=== PATIENT | male | born 1960 | race American Indian/Alaskan Native ===

== ENCOUNTER → 2017-08-09 | Day surgery (SDC) | payer MEDICAID, OTHER ==
[~2017-08-09] MED LIST: Bupivacaine 0.5% 10 ML SDV INJECT ONE; Carboprost Tromethamine 250 MCG/1 ML Amp ONE; HYDROmorphone 1 MG/ML Syringe IVPUSH ONE; HYDROmorphone 1 MG/ML Syringe ONE; HYDROmorphone 2 MG/ML Syringe IVPUSH ONE; LORazepam 2 MG/ML SDV IVPUSH ONE; Lactated Ringers 1,000 ML IV SCH; Lidocaine 1% 20 ML MDV INJECT ONE; Methylergonovine 0.2 MG/1 ML Amp ONE; Midazolam 1 MG/ML 2 ML SDV ONE; Morphine 4 MG/ML Syringe IVPUSH ONE; Morphine 4 MG/ML Syringe IVPUSH PRN; Ondansetron 4 MG/2 ML SDV ONE; Oxytocin 10 Units/1 ML SDV ONE; Propofol 200 MG/20 ML SDV ONE; Rocuronium 10 MG/ML 10 ML Syringe ONE; Sodium Chloride 0.9% 10 ML Syringe FLUSH PRN; Sodium Chloride 0.9% 2.5 ML Syringe FLUSH PRN; Succinylcholine/Normal Saline 200 MG/10 ML Syringe ONE; fentaNYL 100 MCG/2 ML SDV ONE; fentaNYL 250 MCG/5 ML SDV ONE
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
--- NOTE | 2017-08-09 16:17 | CR ---
EXAMINATION: Abdomen HISTORY: Foreign body COMPARISON: None TECHNIQUE: AP views of the abdomen FINDINGS: There is a nonobstructive bowel gas pattern. No calcifications project over the kidneys. Po sterior fusion hardware noted within the lower lumbar spine no foreign body projects over the abdomen . Pelvic phleboliths noted. Visualized osseous structures otherwise appear normal. IMPRESSION: 1. No radiopaque foreign body identified.
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
--- NOTE | 2017-08-09 19:00 | PCM.OPNOTE ---
- General Post-Op/Procedure Note Date of Surgery/Procedure: 08/09/17 Operative Procedure(s): Anoscopy with attempted removal of rectal foreign body. Pre Op Diagnosis: Rectal foreign body Post-Op Diagnosis: Rectal foreign body. Unable to remove the entire foreign body due to lack of instrumentation. Anesthesia Technique: General ET Tube (ASA IIE) Primary Surgeon: Haris Askew Fluid Replacement, Intraop: 1,000 EBL in mLs: 10 Condition: Fair Free Text/Narrative:: Dictation [id number]
--- NOTE | 2017-08-09 20:01 | PCM.POSTAN ---
POST ANESTHESIA ASSESSMENT - MENTAL STATUS Mental Status: Alert, Oriented - VITAL SIGNS Pulse Rate: 73 SaO2: 96 Resp Rate: 14 Blood Pressure: 110/79 Temperature: 36.4 C - RESPIRATORY Respiratory Status: Respiratory Rate WNL, Airway Patent, O2 Saturation Stable - CARDIOVASCULAR CV Status: Pulse Rate WNL, Blood Pressure Stable - GASTROINTESTINAL GI Status: No Symptoms - PAIN Pain Score: 0 - POST OP HYDRATION Hydration Status: Adequate & Stable
--- NOTE | 2017-08-09 20:04 | PCM48HPAN ---
Post Anesthesia Note - EVALUATION WITHIN 48HRS OF ANESTHETIC Vital Signs in Normal Range: Yes Patient Participated in Evaluation: Yes Respiratory Function Stable: Yes Airway Patent: Yes Cardiovascular Function Stable: Yes Hydration Status Stable: Yes Pain Control Satisfactory: Yes Nausea and Vomiting Control Satisfactory: Yes Mental Status Recovered: Yes - COMMENTS/OBSERVATIONS Free Text/Narrative:: Patient transferred via ambulance to [place] for further care from PACU
--- NOTE | 2017-08-10 06:33 | OR ---
SURGEON: Haris Askew M.D. DATE OF PROCEDURE: 08/09/2017 OPERATION PERFORMED: Anoscopy with attempted removal of large rectal foreign body. ANESTHESIA: General endotracheal. ASA CLASSIFICATION: IIE. PREOPERATIVE DIAGNOSIS: Rectal foreign body x24 hours. POSTOPERATIVE DIAGNOSIS: Rectal foreign body x24 hours. ESTIMATED BLOOD LOSS: 5 to 10 mL. INTRAOPERATIVE FLUID REPLACEMENT: 1000 mL of crystalloid. DESCRIPTION OF PROCEDURE: The patient was taken to the operating room and placed on the operating table in the supine position. Time-out was called for appropriate identification of patient and procedure. Sequential compression boots were placed. Following satisfactory attainment of general endotracheal anesthesia, the patient was placed in lithotomy position in the [facility]. Anal dilatation was carried out and the foreign body could initially be felt. We were able to remove 3 to 4 pieces of this, but we could not get above it to remove it. We do not have the rectal instrumentation to go any higher and my concern was that we would perforate his bowel or that he might well require laparotomy and diverting colostomy. There was no obvious perforation at this time, but it was elected to terminate the procedure and transfer the patient to a higher level of care. He did tolerate the procedure well here and was taken to recovery room following emergence from anesthesia and extubation in satisfactory condition. ANASTASIYA / ZOYA /[id number]
--- NOTE | 2017-08-14 15:10 | PCM.SN ---
- Free Text/Narrative Note: Medications charged to patient on 08/10 are not medications given to the Patient. The patient was transferred to a higher level of care 08/09.
== END ==
LOC: MW.ED 14:54 → MW.SDS 17:20
PROVIDERS: ATTEND Surgery
DX: T18.5XXA Foreign body in anus and rectum, initial encounter (principal); F17.210 Nicotine dependence, cigarettes, uncomplicated; W45.8XXA Other foreign body or object entering through skin, initial encounter; Z90.89 Acquired absence of other organs
CPT/HCPCS: 45915; 74018; 96374; 96375; 96376; 99284; J1170; J2060; J2250; J2270; J2405; J3010; J7120; 00902; 88300; 99282; J2704

== ENCOUNTER 2019-10-09 09:20 | Emergency (ER) | payer OTHER ==
[2019-10-09] MEDS ORDERED: Cephalexin 500 MG Cap PO ONE (09:52)
[2019-10-09] MEDS ORDERED: Sulfamethoxazole/Trimethoprim 800-160 MG Tab PO STA (09:52)
[2019-10-09] MEDS: HYDROmorphone 1 MG/ML Syringe IVPUSH PRN ×3 (10:06→13:16)
[2019-10-09 10:20] LABS: BLOOD UREA NITROGEN,BUN 13 mg/dL (7.0-18.0); CARBON DIOXIDE,CO2 26.8 mmol/L (21.0-32.0); CHLORIDE,CL 98 mmol/L (98-107); GLUCOSE RANDOM 105 mg/dL (74-106); POTASSIUM,K 3.5 mmol/L (3.5-5.1); SODIUM,NA 135 mmol/L (136-148)
--- NOTE | 2019-10-09 12:02 | US ---
Bilateral lower extremity deep venous ultrasound: Duplex and color Doppler evaluation was obtained of the right and left common femoral, saphenous, superficial femoral, popliteal, posterior tibial and peroneal veins. Technologist's note: Very technically challenging exam of left leg, numerous open sores in both legs Findings: No definite thrombus is seen within either right or left lower extremities. Impression: 1. No definite venous thrombosis is seen within the right or left lower extremities. Diagnostic code #1 Study was dictated in MDT
[2019-10-09] MEDS ORDERED: Iopamidol 755 Mg/ML 100 ML Bottle IVPUSH ONE (12:41)
--- NOTE | 2019-10-09 13:28 | CT ---
EXAM DATE: 10/09/19 PATIENT'S AGE: 59 CT pelvis Technique: Multiple axial sections were obtained from above the kidneys inferiorly through the pubic symphysis. Intravenous contrast was utilized. No oral contrast has been given. Reconstructed coronal and sagittal images were obtained. Findings: Left common iliac vein is slightly flattened from the right common iliac artery. There is slight prominence in size of the left internal and external iliac veins. Left common femoral and superficial femoral veins appear symmetric in size between right and left sides. Left greater saphenous vein is slightly larger on the left side than on the right side. Subcutaneous edema is seen within the left lower extremity. Slightly prominent lymph nodes within the left inguinal region are seen most likely on an inflammatory basis. Inferior vena cava appears within normal limits. Normal enhancement seen of the visualized veins without evidence of venous thrombosis. Other visualized intra-abdominal structures appear within normal limits. Impression: 1. Slight flattening of the left common iliac vein by the right common iliac artery. Slightly prominent size of the left internal and external iliac veins as well as left greater saphenous vein. Findings felt to represent a mild May Thurner syndrome. No findings of venous thrombosis is seen at this time. 2. Subcutaneous edema within the visualized left lower extremity. Prominent lymph nodes with the left inguinal region most likely on an inflammatory basis. 3. No additional abnormality is appreciated. Diagnostic code #3 This report was dictated in MDT Report Signed by Proxy. NASIR
[2019-10-09] MEDS ORDERED: Aspirin 325 MG Tab PO ONE (14:17)
--- NOTE | 2019-10-09 14:18 | EDM.PDOC ---
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 date because of possible harm to the unborn baby. Discuss the risks and benefits with your doctor. This drug passes into breast milk. While there have been no reports of harm to healthy infants, this drug may have undesirable effects on infants who are ill or premature or have certain disorders (jaundice , high blood levels of bilirubin, G6PD deficiency). Therefore, breast-feeding is not recommended in infants with these conditions. Consult your doctor before breast-feeding any . BACTRIM - DRUG INTERACTIONS: Drug interactions may change how your medications work or increase your risk for serious side effects. This document does not contain all possible drug interactions. Keep a list of all the products you use (including prescription/nonprescription drugs and herbal products) and share it with your doctor and pharmacist. Do not start, stop, or change the dosage of any medicines without your doctor's approval. Some products that may interact with this drug include: certain anti-diabetic medications (sulfonylureas such as glipizide, glyburide, tolbutamide), cyclosporine, digoxin, dofetilide, hydantoins (e.g., phenytoin), live bacterial vaccines, methenamine, methotrexate , PABA taken by mouth, procainamide, pyrimethamine, warfarin. This medication may decrease the effectiveness of combination-type control pills. This can result in . Ask your doctor or pharmacist for details. Discuss whether you should use additional reliable control methods while using this medication. This product can affect the results of certain lab tests. Make sure laboratory personnel and all your doctors know you use this drug. Sepsis Event Note - Evaluation Sepsis Screening Result: No Definite Risk - Focused Exam Vital Signs: Vital Signs Temp Pulse Resp BP Pulse Ox 10/09/19 09:47 36.7 C 92 14 139/87 97 Date Exam was Performed: 10/09/19 Time Exam was Performed: 14:16 - My Orders Last 24 Hours: My Active Orders 10/09/19 09:40 Blood Culture x2 Reflex Set [OM.PC] Stat 10/09/19 09:42 DRUG SCREEN, URINE [URCHEM] Stat 10/09/19 09:45 CULTURE BLOOD [BC] Stat 10/09/19 09:58 CULTURE BLOOD [BC] Stat - Assessment/Plan Last 24 Hours: My Active Orders 10/09/19 09:40 Blood Culture x2 Reflex Set [OM.PC] Stat 10/09/19 09:42 DRUG SCREEN, URINE [URCHEM] Stat 10/09/19 09:45 CULTURE BLOOD [BC] Stat 10/09/19 09:58 CULTURE BLOOD [BC] Stat
== END 2019-10-09 14:47 | disposition home or self-care (01) ==
LOC: MW.ED 09:20
DX: L03.116 Cellulitis of left lower limb (principal); I87.8 Other specified disorders of veins; F17.210 Nicotine dependence, cigarettes, uncomplicated; M19.90 Unspecified osteoarthritis, unspecified site; Z79.82 Long term (current) use of aspirin
CPT/HCPCS: 36415; 72193; 80048; 83605; 85025; 87040; 93970; 96374; 96376; 99284; A9270; J1170; Q9967

== ENCOUNTER 2022-04-07 12:35 | Emergency (ER) | payer OTHER ==
[2022-04-07] MEDS ORDERED: Iopamidol 755 Mg/ML 100 ML Bottle IV ONE (12:46)
[2022-04-07] MEDS ORDERED: Ondansetron 4 MG/2 ML SDV IVPUSH ONE (13:00)
[2022-04-07] MEDS ORDERED: Morphine 4 MG/ML Syringe IV ONE ×2 (13:02→13:49)
[2022-04-07] MEDS ORDERED: Lidocaine 2% Viscous Solution 15 ML UD PO ONE (13:45)
[2022-04-07] MEDS ORDERED: Metoclopramide Oral Soln 10 MG/10 ML UD Cup PO ONE (13:45)
[2022-04-07] MEDS ORDERED: Sodium Chloride 0.9% 1,000 ML IV ONE (13:45)
[2022-04-07] MEDS ORDERED: Famotidine 20 MG/2 ML SDV IV ONE (13:46)
== END 2022-04-07 18:25 ==
LOC: MW.ED 12:35
DX: R10.84 Generalized abdominal pain (principal)
CPT/HCPCS: 74177; 96361; 96374; 96375; 96376; 99284; A9270; J2270; J2405; J3490; J7030; Q9967

== ENCOUNTER 2022-05-11 14:48 | Inpatient (IN) | payer OTHER ==
[2022-05-11] MEDS ORDERED: Ketorolac 30 MG/ML SDV IM ONE (15:14)
[2022-05-11] MEDS ORDERED: Acetaminophen/HYDROcodone 325-5 MG Tab PO ONE (15:31)
[2022-05-11] MEDS ORDERED: Sodium Chloride 0.9% 2.5 ML Syringe FLUSH PRN (16:48)
[2022-05-11] MEDS ORDERED: Sodium Chloride 0.9% 10 ML Syringe FLUSH PRN (16:48)
[2022-05-11] MEDS ORDERED: Enoxaparin 100 MG/1 ML Syringe SUBCUT STA (16:51)
[2022-05-11] MEDS ORDERED: Morphine 4 MG/ML Syringe IVPUSH ONE (17:29)
[2022-05-11 17:33] LABS: CARBON DIOXIDE,CO2 23.8 mmol/L (21.0-32.0); POTASSIUM,K 4.3 mmol/L (3.5-5.1)
[2022-05-11] MEDS ORDERED: Morphine 2 MG/ML SYRINGE IVPUSH PRN (20:29)
[2022-05-11] MEDS ORDERED: Acetaminophen 325 MG Tab PO PRN (20:30)
[2022-05-11] MEDS: oxyCODONE 5 MG Tab PO PRN (20:50)
[2022-05-12] MEDS: oxyCODONE 5 MG Tab PO PRN ×3 (03:01→14:17)
[2022-05-12] MEDS: Enoxaparin 100 MG/1 ML Syringe SUBCUT SCH ×2 (05:02→17:02)
[2022-05-12] MEDS ORDERED: Enoxaparin 100 MG/1 ML Syringe SUBCUT SCH (06:00)
[2022-05-12 06:23] LABS: CARBON DIOXIDE,CO2 22.9 mmol/L (21.0-32.0)
[2022-05-12] MEDS: Pantoprazole 40 MG Tab.CR PO SCH (09:28)
[2022-05-12] MEDS ORDERED: Warfarin 5 MG Tab PO ONE (14:00)
[2022-05-12] MEDS: Warfarin Sliding Scale PO SCH (14:14)
[2022-05-13] MEDS: oxyCODONE 5 MG Tab PO PRN ×3 (00:53→23:42)
[2022-05-13] MEDS: Enoxaparin 100 MG/1 ML Syringe SUBCUT SCH ×2 (04:50→17:37)
[2022-05-13 07:18] LABS: POTASSIUM,K 4.3 mmol/L (3.5-5.1)
[2022-05-13] MEDS: Morphine 4 MG/ML Syringe IVPUSH PRN ×4 (08:58→21:06)
[2022-05-13] MEDS: Pantoprazole 40 MG Tab.CR PO SCH (09:00)
[2022-05-13] MEDS ORDERED: Warfarin 5 MG Tab PO ONE (14:00)
[2022-05-13] MEDS: Warfarin Sliding Scale PO SCH (14:29)
[2022-05-14] MEDS: Morphine 4 MG/ML Syringe IVPUSH PRN ×2 (04:00→08:30)
[2022-05-14] MEDS: Enoxaparin 100 MG/1 ML Syringe SUBCUT SCH (04:07)
[2022-05-14 07:34] LABS: POTASSIUM,K 4.3 mmol/L (3.5-5.1)
[2022-05-14] MEDS: Pantoprazole 40 MG Tab.CR PO SCH (08:33)
[2022-05-14] MEDS ORDERED: HYDROmorphone 1 MG/ML Syringe IVPUSH PRN (08:45)
[2022-05-14] MEDS: HYDROmorphone 1 MG/ML Syringe IVPUSH PRN ×4 (09:47→21:52)
[2022-05-14] MEDS ORDERED: Warfarin 5 MG Tab PO ONE (14:00)
[2022-05-14] MEDS: Warfarin Sliding Scale PO SCH (14:48)
[2022-05-14] MEDS ORDERED: Heparin Sodium 5,000 Units/ML Vial IV ONE (15:30)
[2022-05-14] MEDS: Heparin Sodium/0.45% NaCl 500 ML IV SCH (16:34)
[2022-05-14] MEDS: oxyCODONE 5 MG Tab PO PRN (20:35)
[2022-05-15] MEDS: HYDROmorphone 1 MG/ML Syringe IVPUSH PRN ×8 (01:01→23:53)
[2022-05-15 04:36] LABS: CARBON DIOXIDE,CO2 27.5 mmol/L (21.0-32.0); POTASSIUM,K 4.7 mmol/L (3.5-5.1)
[2022-05-15] MEDS: Pantoprazole 40 MG Tab.CR PO SCH (08:16)
[2022-05-15] MEDS: Heparin Sodium/0.45% NaCl 500 ML IV SCH (10:06)
[2022-05-15] MEDS: oxyCODONE 5 MG Tab PO PRN (12:42)
[2022-05-15] MEDS ORDERED: Warfarin 5 MG Tab PO ONE (14:00)
[2022-05-15] MEDS: Warfarin Sliding Scale PO SCH (14:19)
[2022-05-16] MEDS: HYDROmorphone 1 MG/ML Syringe IVPUSH PRN ×4 (03:45→13:26)
[2022-05-16] MEDS: Heparin Sodium/0.45% NaCl 500 ML IV SCH (04:19)
[2022-05-16 04:44] LABS: CARBON DIOXIDE,CO2 28.9 mmol/L (21.0-32.0); POTASSIUM,K 4.4 mmol/L (3.5-5.1)
[2022-05-16] MEDS: Pantoprazole 40 MG Tab.CR PO SCH (09:16)
[2022-05-16] MEDS: oxyCODONE 5 MG Tab PO PRN (12:54)
[2022-05-16] MEDS ORDERED: Warfarin 5 MG Tab PO ONE (14:00)
[2022-05-16] MEDS: Warfarin Sliding Scale PO SCH (15:33)
== END 2022-05-16 15:00 | DRG 301 ==
LOC: MW.ED 14:48 → MW.MS 17:38
PROVIDERS: ADMIT Internal Medicine; ATTEND Student in an Organized Health Care Education/Training Program
DX: I82.411 Acute embolism and thrombosis of right femoral vein (principal); Z86.718 Personal history of other venous thrombosis and embolism; F17.210 Nicotine dependence, cigarettes, uncomplicated; I82.431 Acute embolism and thrombosis of right popliteal vein; K21.9 Gastro-esophageal reflux disease without esophagitis; M19.90 Unspecified osteoarthritis, unspecified site; G89.29 Other chronic pain; M54.9 Dorsalgia, unspecified; Z20.822 Contact with and (suspected) exposure to COVID-19; F32.A Depression, unspecified; Z86.19 Personal history of other infectious and parasitic diseases; Z90.89 Acquired absence of other organs; Z98.1 Arthrodesis status
CPT/HCPCS: 36415; 80048; 85025; 85610; 87635; 93971; A9270; J1650; J2270; 80053; 83735; 85730; 86038; J1170; J1644; U0002

== ENCOUNTER 2022-09-26 15:48 | Emergency (ER) | payer OTHER ==
[2022-09-26] MEDS ORDERED: Dexamethasone 10 MG/ML SDV PO ONE (16:27)
[2022-09-26] MEDS ORDERED: Ketorolac 30 MG/ML SDV IVPUSH ONE (16:27)
[2022-09-26] MEDS ORDERED: Metoclopramide 10 MG/2 ML SDV IVPUSH ONE (16:27)
[2022-09-26] MEDS ORDERED: Sodium Chloride 0.9% 1,000 ML IV ONE (16:27)
[2022-09-26] MEDS ORDERED: diphenhydrAMINE 50 MG/ML SDV IVPUSH ONE (16:29)
== END 2022-09-26 18:37 | disposition home or self-care (01) ==
LOC: MW.ED 15:48
DX: J02.9 Acute pharyngitis, unspecified (principal); R51.9 Headache, unspecified; Z79.01 Long term (current) use of anticoagulants
CPT/HCPCS: 96374; 96375; 99284; J1200; J1885; J2765; J7030; J8540

== ENCOUNTER 2023-01-27 19:37 | Emergency (ER) | payer OTHER ==
[2023-01-27] MEDS ORDERED: Sodium Chloride 0.9% 1,000 ML IV ONE (20:21)
[2023-01-27] MEDS ORDERED: Sodium Chloride 0.9% 10 ML Syringe FLUSH PRN (20:21)
[2023-01-27] MEDS ORDERED: Ondansetron 4 MG/2 ML SDV IVPUSH ONE (20:21)
[2023-01-27] MEDS ORDERED: Sodium Chloride 0.9% 2.5 ML Syringe FLUSH PRN (20:21)
[2023-01-27 20:26] LABS: BASOPHILS PERCENT AUTO 0.5 % (0.0-1.5); EOSINOPHILS ABSOLUTE AUTO 0.2 K/uL (0.0-0.7); EOSINOPHILS PERCENT AUTO 3.3 % (0.0-7.0); HEMATOCRIT 51.3 % (38.0-50.0); HEMOGLOBIN 17.8 g/dL (13.0-17.0); LYMPHOCYTES ABSOLUTE AUTO 1.6 K/uL (0.6-2.4); LYMPHOCYTES PERCENT AUTO 28.1 % (16.0-40.0); MEAN CORPUSCULAR HEMOGLOBIN 30.3 pg (27.0-32.0); MEAN CORPUSCULAR HGB CONC 34.7 g/dL (31.0-37.0); MEAN CORPUSCULAR VOLUME 87.4 fL (80.0-98.0); MONOCYTES ABSOLUTE AUTO 0.6 K/uL (0.0-0.8); MONOCYTES PERCENT AUTO 9.6 % (0.0-15.0); NEUTROPHILS ABSOLUTE AUTO 3.4 K/uL (1.4-5.7); NEUTROPHILS PERCENT AUTO 58.5 % (48.0-80.0); NRBC ABSOLUTE 0 K/uL; PLATELET COUNT,PLT 257 K/uL (150-400); RED BLOOD CELL COUNT 5.87 M/uL (4.50-5.90); WHITE BLOOD CELL COUNT,WBC 5.73 K/uL (4.0-11.0)
[2023-01-27 20:38] LABS: INR 1.11 (0.86-1.11)
[2023-01-27 20:45] LABS: A/G RATIO 0.9 (0.9-1.6); ALBUMIN 3.7 g/dL (3.4-5.0); BILIRUBIN TOTAL 0.9 mg/dL (0.2-1.0); CALCIUM 8.9 mg/dL (8.5-10.1); CARBON DIOXIDE,CO2 23.5 mmol/L (21.0-32.0); CREATININE 1.1 mg/dL (0.8-1.3); EST CRCL DRUG DOSING (CG) 74.46 mL/min; POTASSIUM,K 4.1 mmol/L (3.5-5.1); PROTEIN TOTAL,TP 7.9 g/dL (6.4-8.2)
[2023-01-27 21:06] LABS: APPEARANCE,URINE CLEAR; BILIRUBIN,URINE NEGATIVE (NEGATIVE); COLOR,URINE YELLOW; GLUCOSE,URINE NEGATIVE (NEGATIVE); KETONES,URINE NEGATIVE (NEGATIVE); LEUKOCYTE ESTERASE,URINE NEGATIVE (NEGATIVE); NITRITE,URINE NEGATIVE (NEGATIVE); OCCULT BLOOD,URINE NEGATIVE (NEGATIVE); PROTEIN,URINE NEGATIVE (NEGATIVE); UROBILINOGEN,URINE 0.2 EU/dL (<2.0)
[2023-01-27] MEDS ORDERED: Iopamidol 755 MG/ML 500 ML Multipack Bottle IVPUSH ONE (21:25)
[2023-01-28] MEDS ORDERED: Pantoprazole 40 MG in Sodium Chloride 0.9% 10 ML IVPUSH ONE ×2
== END 2023-01-28 00:35 | disposition home or self-care (01) ==
LOC: MW.ED 19:37
DX: K52.9 Noninfective gastroenteritis and colitis, unspecified (principal); Z86.718 Personal history of other venous thrombosis and embolism; Z79.01 Long term (current) use of anticoagulants
CPT/HCPCS: 36415; 74177; 80053; 81003; 83690; 85025; 85610; 93005; 96361; 96374; 96375; 99284; C9113; J2405; J3490; J7030; Q9967; 93010

== ENCOUNTER 2023-03-22 05:35 | Emergency (ER) | payer OTHER ==
[2023-03-22] MEDS ORDERED: Sodium Chloride 0.9% 10 ML Syringe FLUSH PRN (05:41)
[2023-03-22] MEDS ORDERED: Sodium Chloride 0.9% 2.5 ML Syringe FLUSH PRN (05:41)
[2023-03-22] MEDS ORDERED: Sodium Chloride 0.9% 1,000 ML IV ONE ×2 (05:42→08:12)
[2023-03-22 05:48] LABS: BASOPHILS PERCENT AUTO 0.3 % (0.0-1.5); EOSINOPHILS ABSOLUTE AUTO 0.1 K/uL (0.0-0.7); EOSINOPHILS PERCENT AUTO 2.1 % (0.0-7.0); HEMATOCRIT 51.2 % (38.0-50.0); HEMOGLOBIN 16.7 g/dL (13.0-17.0); LYMPHOCYTES PERCENT AUTO 15.5 % (16.0-40.0); MEAN CORPUSCULAR HEMOGLOBIN 29.2 pg (27.0-32.0); MEAN CORPUSCULAR HGB CONC 32.6 g/dL (31.0-37.0); MEAN CORPUSCULAR VOLUME 89.5 fL (80.0-98.0); MONOCYTES ABSOLUTE AUTO 0.3 K/uL (0.0-0.8); MONOCYTES PERCENT AUTO 5.2 % (0.0-15.0); NEUTROPHILS ABSOLUTE AUTO 4.8 K/uL (1.4-5.7); NEUTROPHILS PERCENT AUTO 76.9 % (48.0-80.0); NRBC ABSOLUTE 0 K/uL; PLATELET COUNT,PLT 203 K/uL (150-400); RED BLOOD CELL COUNT 5.72 M/uL (4.50-5.90); WHITE BLOOD CELL COUNT,WBC 6.18 K/uL (4.0-11.0)
[2023-03-22] MEDS ORDERED: Pantoprazole 40 MG in Sodium Chloride 0.9% 10 ML IVPUSH ONE (05:53)
[2023-03-22] MEDS ORDERED: Morphine 2 MG/ML SYRINGE IVPUSH ONE (05:54)
[2023-03-22] MEDS ORDERED: Naloxone 0.4 MG/ML SDV IVPUSH PRN (05:54)
[2023-03-22 06:17] LABS: A/G RATIO 0.8 (0.9-1.6); ALBUMIN 3.5 g/dL (3.4-5.0); BILIRUBIN TOTAL 0.3 mg/dL (0.2-1.0); CALCIUM 8.5 mg/dL (8.5-10.1); CREATININE 1.3 mg/dL (0.8-1.3); EST CRCL DRUG DOSING (CG) 63.01 mL/min; POTASSIUM,K 4.2 mmol/L (3.5-5.1); PROTEIN TOTAL,TP 7.8 g/dL (6.4-8.2)
[2023-03-22 06:18] LABS: INR 1.07 (0.86-1.11)
[2023-03-22] MEDS ORDERED: Iopamidol 755 MG/ML 500 ML Multipack Bottle IVPUSH STA (07:00)
[2023-03-22] MEDS ORDERED: HYDROmorphone 1 MG/ML Syringe IVPUSH ONE ×2 (07:10→07:45)
[2023-03-22] MEDS: Aluminum Hydroxide/Magnesium Hydroxide/Simethicone XS Susp 30 ML Cup PO ONE ×2 (08:03→08:46)
[2023-03-22] MEDS: Sucralfate 1 GM Tab PO ONE ×2 (08:03→08:45)
== END 2023-03-22 08:45 | disposition left against medical advice (07) ==
LOC: MW.ED 05:35
DX: K29.70 Gastritis, unspecified, without bleeding (principal); F10.90 Alcohol use, unspecified, uncomplicated
CPT/HCPCS: 36415; 80053; 80307; 83605; 83690; 83880; 84484; 85025; 85610; 93005; 96361; 96374; 96375; 99284; C9113; J1170; J3490; J7030; 93010; A9270-GY

== ENCOUNTER 2025-02-23 06:37 | Day surgery (SDC) | payer OTHER ==
[2025-02-23] MEDS ORDERED: propofoL 500 MG/50 ML 50 ML ONE (07:06)
[2025-02-23] MEDS ORDERED: dexmedeTOMIDine HCl 200 MCG/2 ML SDV ONE (07:16)
[2025-02-23] MEDS: Lactated Ringers 1,000 ML IV SCH (07:16)
[2025-02-23] MEDS ORDERED: Lactated Ringers 1,000 ML IV SCH (08:45)
== END 2025-02-23 09:10 | disposition home or self-care (01) ==
LOC: MW.SDS 06:37
PROVIDERS: ATTEND Surgery
DX: D12.4 Benign neoplasm of descending colon (principal); D12.5 Benign neoplasm of sigmoid colon; K57.30 Diverticulosis of large intestine without perforation or abscess without bleeding; F17.210 Nicotine dependence, cigarettes, uncomplicated; Z88.8 Allergy status to other drugs, medicaments and biological substances; Z79.899 Other long term (current) drug therapy
CPT/HCPCS: 45380; 88305; J2003; J2704; J7120; 00811